=== PATIENT | female | born 1995 | race Caucasian/White ===

== ENCOUNTER 2017-07-05 21:25 | Emergency (ER) | payer OTHER, MEDICAID ==
[2017-07-05 21:45] VITALS: BP 120/79
--- NOTE | 2017-07-05 21:46 | EDM.PDOC ---
ED HPI GENERAL MEDICAL PROBLEM - General Stated Complaint: KNEE BRACE Time Seen by Provider: 07/05/17 21:40 Source of Information: Reports: Patient History Limitations: Reports: No Limitations - History of Present Illness INITIAL COMMENTS - FREE TEXT/NARRATIVE: Patient is a 21 year old woman who has had a one year history of right knee pain , Achilles tendinitis and right foot pain. She had a MRI done today that showed an inflamed ACL on the right. She needs a knee brace. No trauma. Onset: Other (1 year ago.) Onset Date: 07/05/16 Onset Time: 16:00 Duration: Other (1 year) Location: Reports: Lower Extremity, Right Quality: Reports: Ache Severity: Moderate Improves with: Reports: Cold Therapy, Immobilization, Medication Worsens with: Reports: Movement Context: Reports: Activity Associated Symptoms: Reports: No Other Symptoms Treatments [employer]: Reports: Acetaminophen, NSAIDS, Other (see below) (Walking boot. ) - Related Data Allergies Allergy/AdvReac Type Severity Reaction Status Date / Time No Known Allergies Allergy Verified 12/31/15 19:37 Home Meds: Home Meds .Depo Shot 12/31/15 [History] Acetaminophen/oxyCODONE [Percocet 325-5 MG] 1 each PO Q4HR PRN #20 tab 12/31/15 [Rx] metroNIDAZOLE [Flagyl] 500 mg PO Q12H #14 tab 12/31/15 [Rx] Past Medical History Other OB/BYN History: l-ovariabn cyst removed Social & Family History - Tobacco Use Smoking Status *Q: Never Smoker - Recreational Drug Use Recreational Drug Use: No Review of Systems - Review of Systems Review Of Systems: See Below Constitutional: Reports: No Symptoms Eyes: Reports: No Symptoms Ears: Reports: No Symptoms Nose: Reports: No Symptoms Mouth/Throat: Reports: No Symptoms Respiratory: Reports: No Symptoms Cardiovascular: Reports: No Symptoms GI/Abdominal: Reports: No Symptoms Genitourinary: Reports: No Symptoms Musculoskeletal: Reports: Other (As per HPI) Skin: Reports: No Symptoms Neurological: Reports: No Symptoms Psychiatric: Reports: No Symptoms ED EXAM, GENERAL - Physical Exam Exam: See Below Exam Limited By: No Limitations General Appearance: Alert, WD/WN, No Apparent Distress Eye Exam: Bilateral Eye: EOMI, Normal Fundi, Normal Inspection, PERRL Ears: Normal External Exam, Normal Canal, Hearing Grossly Normal, Normal TMs Ear Exam: Bilateral Ear: Auricle Normal, Canal Normal, TM normal Nose: Normal Inspection, Normal Mucosa, No Blood Throat/Mouth: Normal Inspection, Normal Lips, Normal Teeth, Normal Gums, Normal Oropharynx, Normal Voice, No Airway Compromise Head: Atraumatic, Normocephalic Neck: Normal Inspection, Supple, Non-Tender, Full Range of Motion Respiratory/Chest: No Respiratory Distress, Lungs Clear, Normal Breath Sounds, No Accessory Muscle Use, Chest Non-Tender Cardiovascular: Normal Peripheral Pulses, Regular Rate, Rhythm, No Edema, No Gallop, No JVD, No Murmur, No Rub Back Exam: Normal Inspection, Full Range of Motion, NT Extremities: Other (She is in a walking boot in the right. Right knee is painful on anterior palpation and ROM.) Neurological: Alert, Oriented, CN II-XII Intact, Normal Cognition, Normal Gait, Normal Reflexes, No Motor/Sensory Deficits Psychiatric: Normal Affect, Normal Mood Skin Exam: Warm, Dry, Intact, Normal Color, No Rash Course - Vital Signs Text/Narrative:: Uneventful ED course. She was put in a knee brace and she did well. She will follow up with Dr. Silva on July 26, 2017. Departure - Departure Time of Disposition: 21:51 Disposition: Admitted As Inpatient 66 Condition: Good Clinical Impression: Right anterior knee pain, Right knee sprain - Discharge Information
== END 2017-07-05 22:04 | disposition home or self-care (01) ==
LOC: FB.ED 21:25
DX: S83.91XA Sprain of unspecified site of right knee, initial encounter (principal); Y93.68 Activity, volleyball (beach) (court); Y92.219 Unspecified school as the place of occurrence of the external cause
CPT/HCPCS: 99282

== ENCOUNTER 2017-09-18 23:31 | Emergency (ER) | payer OTHER, MEDICAID ==
[2017-09-19] MEDS ORDERED: cefTRIAXone 250 MG Vial IM ONE (00:48)
[2017-09-19] MEDS ORDERED: Azithromycin 250 MG Tab PO ONE (00:48)
[2017-09-19] MEDS ORDERED: Ondansetron 4 MG Tab.DIS PO ONE (00:49)
[2017-09-19] MEDS ORDERED: metroNIDAZOLE 250 MG Tab PO ONE (00:49)
[2017-09-19] MEDS ORDERED: Hepatitis B Virus Vaccine PF (Pediatric) 10 MCG/0.5 ML SDV IM ONE (00:51)
[2017-09-19] MEDS ORDERED: Ibuprofen 800 MG Tab PO ONE (00:55)
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
[2017-09-19 03:56] VITALS: BP 126/77
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
== END 2017-09-19 03:10 | disposition home or self-care (01) ==
LOC: FB.ED 23:31
DX: T74.21XA Adult sexual abuse, confirmed, initial encounter (principal); S60.212A Contusion of left wrist, initial encounter; S50.02XA Contusion of left elbow, initial encounter; S20.02XA Contusion of left breast, initial encounter; S70.12XA Contusion of left thigh, initial encounter; S50.812A Abrasion of left forearm, initial encounter; Z23 Encounter for immunization; Z79.899 Other long term (current) drug therapy
CPT/HCPCS: 36415; 73110; 80305; 81001; 81025; 86780; 87389; 90471; 96372; 99285; A9270; G0480; J0696; 90744

== ENCOUNTER 2017-12-08 12:41 | Emergency (ER) | payer OTHER, MEDICAID ==
[2017-12-08 13:37] VITALS: BP 128/77
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
== END 2017-12-08 13:50 | disposition home or self-care (01) ==
LOC: FB.ED 12:41
DX: S62.102D Fracture of unspecified carpal bone, left wrist, subsequent encounter for fracture with routine healing (principal); Z79.899 Other long term (current) drug therapy; X58.XXXD Exposure to other specified factors, subsequent encounter
CPT/HCPCS: 99283